=== PATIENT | male | born 1990 | race Caucasian/White ===

== ENCOUNTER 2021-03-10 06:48 | Outpatient (CLI) | payer BC, OTHER ==
[~2021-03-10] VITALS: Ht 180.3 cm; Wt 112.7 kg
[2021-03-10] MEDS ORDERED: OXCA600T10 PO (11:26)
[2021-03-10] MEDS ORDERED: LOXA10CA PO (11:26)
[2021-03-10] MEDS ORDERED: METF-398 PO (11:26)
[2021-03-10] MEDS ORDERED: OXCA300T18 PO (11:26)
[2021-03-10] MEDS ORDERED: PROP20SO PO (11:26)
== END 2021-03-10 12:11 | disposition home or self-care (01) ==
LOC: PREOP 06:48
PROVIDERS: ATTEND Dentist General Practice
DX: Z01.818 Encounter for other preprocedural examination (principal)

== ENCOUNTER 2021-03-15 11:04 | Day surgery (SDC) | payer BC, MEDICAID ==
[~2021-03-15] VITALS: Ht 180.3 cm; Wt 112.7 kg
[2021-03-15] VITALS (9 sets, daily range): BP systolic 122–150; BP diastolic 76–98
[2021-03-15] MEDS ORDERED: COVID-19 VACC,MRNA(MODERNA)/PF 100 MCG/0.5 ML VIAL IM ONE (11:30)
[2021-03-15] MEDS ORDERED: LACTATED RINGERS 1,000 ML IV PRN (11:45)
[2021-03-15] MEDS ORDERED: MIDAZOLAM SYRUP (VERSED) 10MG/5ML UDC PO ONE (11:51)
[2021-03-15] MEDS ORDERED: KETAMINE SYRINGE 50 MG/5 ML SYRINGE ONE (12:06)
[2021-03-15] MEDS ORDERED: fentaNYL INJ 100 MCG/2 ML AMP ONE (12:08)
[2021-03-15] MEDS ORDERED: SEVOFLURANE (ULTANE) 15 ML INHAL SOLN ONE (13:45)
[2021-03-15] MEDS ORDERED: proPOfol 200 MG/20 ML (DIPRIVAN) VIAL IV ONE (13:45)
[2021-03-15] MEDS ORDERED: SUCCINYLCHOLINE INJ 100 MG/5 ML SYR/VIAL ONE (13:45)
[2021-03-15] MEDS ORDERED: LIDOCAINE PF 2% 5 ML (XYLOCAINE) VIAL ONE (13:45)
[2021-03-15] MEDS ORDERED: ONDANSETRON 4 MG/2 ML (SDV) Z0FRAN ONE (13:45)
[2021-03-15] MEDS ORDERED: MEPERIDINE (DEMEROL) INJ 50 MG/ML IVP ONE (14:30)
[2021-03-15] MEDS ORDERED: fentaNYL INJ 100 MCG/2 ML AMP IVP ONE (14:30)
--- NOTE | 2021-03-15 15:14 | Anesthesia-General Post-Op ---
General Patient Condition Mental Status/LOC: Same as Preop Cardiovascular: Satisfactory Nausea/Vomiting: Absent Respiratory: Satisfactory Pain: Controlled Complications: Absent Post Op Complications Complications None Follow Up Care/Instructions Patient Instructions None needed. Anesthesia/Patient Condition Patient Condition Patient is doing well, no complaints, stable vital signs, no apparent adverse anesthesia problems. No complications reported per nursing. MOOSE ANNA CRNA Mar 15, 2021 15:14
--- NOTE | 2021-03-16 13:09 | OPERATIVE REPORT ---
DATE OF SERVICE: 03/15/2021 PREOPERATIVE DIAGNOSIS: Dental caries. POSTOPERATIVE DIAGNOSIS: Dental caries. OPERATION PERFORMED: Repair of numerous carious teeth utilizing composite resin, pulpotomy and stainless steel crown as well as prophylaxis. DESCRIPTION OF PROCEDURE: The patient was treated on an outpatient basis and following suitable premedication, taken to the OR and placed in the supine position upon the table. Anesthesia was induced and orotracheal intubation was accomplished and general anesthesia was administered. A throat pack consisting of one wet 4 x 4 gauze sponge was placed in the oropharynx and maintained in place throughout the procedure. Mouth opening was maintained at all times with simple digital pressure. No mechanical retractors of any kind were utilized. Caries was removed from teeth number 3 and the pulp as well from the coronal aspect of the tooth where upon a stainless steel crown was then fabricated and placed all over the tooth. Caries was removed from tooth #6 and composite resin utilized to repair it as well as #13, which received the same treatment. Prophylaxis was accomplished of the oral cavity ____ ____ to oral cavity as well. The patient tolerated this brief procedure quite nicely and following a thorough debridement of the oral cavity with a copious flow of water, adequate suction and compressed air, the throat pack was removed. The patient was extubated and taken to recovery in quite satisfactory condition. Job ID: [id number] DocumentID: [id number] Dictated Date: 03/16/2021 07:15:19 Wheelage Clerk Date: 03/16/2021 08:43:08 Dictated By: BARON LEON DDS
== END 2021-03-15 16:15 ==
LOC: SDC 11:04
PROVIDERS: ATTEND Dentist General Practice
DX: K02.9 Dental caries, unspecified (principal); E11.9 Type 2 diabetes mellitus without complications; F91.3 Oppositional defiant disorder; F60.9 Personality disorder, unspecified; Z79.84 Long term (current) use of oral hypoglycemic drugs; Z79.899 Other long term (current) drug therapy
CPT/HCPCS: 87081; 87636; 91301

== ENCOUNTER → 2021-03-15 | Outpatient (CLI) | payer BC, MEDICAID ==
[~2021-03-15] MED LIST: LOXA10CA PO; METF-398 PO; OXCA300T18 PO; OXCA600T10 PO; PROP20SO PO
[2021-03-15 13:24] LABS: BASOPHILS # (AUTO) 0.1 10^3/uL (0.0-0.1); BASOPHILS % (AUTO) 1 % (0-10); EOSINOPHILS # (AUTO) 0.3 10^3/uL (0.0-0.3); EOSINOPHILS % (AUTO) 3 % (0-10); HEMATOCRIT 42 % (40-54); LYMPHOCYTES # (AUTO) 3.3 10^3/uL (1.0-4.0); LYMPHOCYTES % (AUTO) 34 % (12-44); MEAN CORPUSCULAR HEMOGLOBIN 30 pg (25-34); MEAN CORPUSCULAR HGB CONC 36 g/dL (32-36); MEAN CORPUSCULAR VOLUME 86 fL (80-99); MEAN PLATELET VOLUME 10.2 fL (9.0-12.2); MONOCYTES # (AUTO) 0.9 10^3/uL (0.0-1.0); MONOCYTES % (AUTO) 9 % (0-12); NEUTROPHILS # (AUTO) 5.1 10^3/uL (1.8-7.8); NEUTROPHILS % (AUTO) 52 % (42-75); PLATELET COUNT 258 10^3/uL (130-400); WHITE BLOOD COUNT 9.7 10^3/uL (4.3-11.0)
[2021-03-15 13:38] LABS: ALBUMIN 4.3 GM/DL (3.2-4.5); CALCIUM 9.5 MG/DL (8.5-10.1); CREATININE SERUM 0.7 MG/DL (0.60-1.30); TOTAL PROTEIN 7.3 GM/DL (6.4-8.2)
[2021-03-15 13:59] LABS: FREE T4 (FREE THYROXINE) 1.1 NG/DL (0.70-1.48)
== END ==
LOC: SDC 11:08
PROVIDERS: ATTEND Nurse Practitioner Family
DX: Z00.00 Encounter for general adult medical examination without abnormal findings (principal); Z23 Encounter for immunization
CPT/HCPCS: 36415; 80053; 80061; 83036; 84439; 84443; 85025